=== PATIENT | female | born 1955 | race Caucasian/White ===

== ENCOUNTER 2016-03-05 08:02 | Emergency (ER) | payer BC, OTHER ==
[~2016-03-05] VITALS: Ht 167.6 cm; Wt 90.2 kg
[2016-03-05 08:12] VITALS: TEMP 36.6; Ht 167.6 cm; Wt 90.2 kg
--- NOTE | 2016-03-05 08:41 | DIAGNOSTIC IMAGING REPORT ---
RIGHT HAND MIN 3 VIEWS ROUTINE CLINICAL HISTORY: Right hand pain following fall. COMPARISON: None FINDINGS: There is a comminuted, displaced distal right radial fracture with dorsal tilt of the distal component consistent with a Colles' type fracture. There is a minimally displaced fracture of the base of the ulnar styloid. No additional fractures are identified on this exam. IMPRESSION: 1. Comminuted, displaced distal right radial fracture consistent with a Colles' fracture. 2. Minimally displaced ulnar styloid fracture. Electronically signed by: Vahe Hernandez M.D. 03/05/2016 8:40 AM
[2016-03-05] MEDS ORDERED: SIMV20TA2 PO (08:54)
[2016-03-05] MEDS ORDERED: LEVO125T72 PO (08:54)
--- NOTE | 2016-03-05 09:14 | EMERGENCY ROOM VISIT NOTE ---
ED Visit Note First contact with patient: 08:11 CHIEF COMPLAINT: Right wrist injury HISTORY OF PRESENT ILLNESS: This 60-year-old female patient fell onto the outstretched right hand and pain developed right away in the wrist .There is no numbness of the hand or weakness of the fingers. The pain is constant and moderate in severity. There was no fainting, chest pain, or dizziness before the fall. She is right-hand dominant. The patient denies any prior injury to her right wrist. The patient has not seen any orthopedics in the past. REVIEW OF SYSTEMS: 6 system review was performed and was negative unless stated otherwise in history of present illness. PMH: The patient is healthy; foot surgery SOCIAL HISTORY: Patient lives with her . The patient denies any tobacco or alcohol use PHYSICAL EXAM: Vital Signs: Were reviewed Reviewed Nurse's notes. GEN.: 60-year -old female appears in no acute distress. MENTAL Status: Alert and oriented 3. RIGHT WRIST: There is swelling and tenderness of the distal forearm and wrist. There is no obvious deformity of the distal forearm. The skin is intact. Flexion and extension of the fingers is intact. The fingers are warm and well perfused. The patient has increased pain with ulnar and radial deviation. EMERGENCY DEPARTMENT COURSE: The patient was evaluated. The patient was offered additional pain medication but declined. X-ray of the right wrist was ordered and interpreted by myself and the radiologist. DIAGNOSTICS:RIGHT HAND MIN 3 VIEWS ROUTINE CLINICAL HISTORY: Right hand pain following fall. COMPARISON: None FINDINGS: There is a comminuted, displaced distal right radial fracture with dorsal tilt of the distal component consistent with a Colles' type fracture. There is a minimally displaced fracture of the base of the ulnar styloid. No additional fractures are identified on this exam. IMPRESSION: 1. Comminuted, displaced distal right radial fracture consistent with a Colles' fracture. 2. Minimally displaced ulnar styloid fracture. Electronically signed by: Vahe Hernandez M.D. 03/05/2016 8:40 AM The patient was informed of the findings. The patient was placed in a volar splint. Post-splinting the patient was neurovascularly intact. The patient was discharged home in stable condition. DIAGNOSIS: Fractured distal rt radius and ulna DISCHARGE INSTRUCTIONS AND TREATMENT: Ibuprofen 600 mg every 6 hours with food for pain. Take [place] as needed for more severe pain. Do not drive while taking the [place]. Ice and elevation as much as possible over the next 24 hours. Keep arm in splint until evaluated by orthopedics. Call Dr. Osullivan today for follow-up appointment. Current/Historical Medications Scheduled Levothyroxine Sodium (Synthroid), 125 MCG PO DAILY Simvastatin (Zocor), 1 TAB PO DAILY Allergies Coded Allergies: Sulfa Drugs (Verified Allergy, Unknown, 03/05/16) Vital Signs Date Time Temp Pulse Resp B/P Pulse Ox O2 Delivery O2 Flow Rate FiO2 03/05/16 08:12 36.6 85 18 128/82 95 Room Air Departure Information Referrals Isatu Pacheco DO (PCP) Patient Instructions A Signature Page, My [facility]
[2016-03-05] MEDS ORDERED: HYDR-5688 PO (09:16)
[2016-03-05 09:17] VITALS: BP 130/84; PULSE 79; O2SAT 95
[2016-12-07] MEDS ORDERED: VALA500T60 PO (15:50)
[2016-12-07] MEDS ORDERED: LEVO112T2 PO (15:50)
[2016-12-07] MEDS ORDERED: SIMV20TA5 PO (15:50)
[2016-12-28] MEDS ORDERED: MULT-1027 PO (07:54)
== END 2016-03-05 09:28 | disposition home or self-care (01) ==
LOC: C.EDB 08:04
DX: S52.501A Unspecified fracture of the lower end of right radius, initial encounter for closed fracture (principal); W19.XXXA Unspecified fall, initial encounter; Z79.899 Other long term (current) drug therapy

== ENCOUNTER → 2016-03-07 | Outpatient (CLI) | payer BC ==
[~2016-03-07] MED LIST: HYDR-5688 PO; LEVO112T2 PO; LEVO125T72 PO; MULT-1027 PO; SIMV20TA2 PO; SIMV20TA5 PO; VALA500T60 PO
== END | disposition home or self-care (01) ==
LOC: C.CPL 11:27
PROVIDERS: ATTEND Orthopaedic Surgery Sports Medicine
DX: Z01.810 Encounter for preprocedural cardiovascular examination (principal)

== ENCOUNTER → 2016-07-13 | Outpatient (CLI) | payer BC ==
[2016-07-13 10:15] LABS: ALT/SGPT 35 U/L (12-78); AST/SGOT 19 U/L (15-37); BLOOD UREA NITROGEN 13 mg/dl (7-18); CALCIUM 8.9 mg/dl (8.5-10.1); CARBON DIOXIDE 27 mmol/L (21-32); CHLORIDE 109 mmol/L (98-107); CREATININE 0.66 mg/dl (0.60-1.20); GLUCOSE 91 mg/dl (70-99); POTASSIUM 4.2 mmol/L (3.5-5.1); SODIUM 142 mmol/L (136-145)
[2016-07-13 10:26] LABS: ALB/GLOB RATIO 1.2 (0.9-2); ALKALINE PHOSPHATASE 91 U/L (45-117); CHOLESTEROL 173 mg/dl (0-200); CHOLESTEROL/HDL RATIO 3.8; HDL CHOLESTEROL 46 mg/dl; LDL CHOLESTEROL CALCULATED 101 mg/dl; THYROID STIMULATING HORMONE 0.207 uIu/ml (0.300-4.500); TRIGLYCERIDES 128 mg/dl (0-150); VERY LOW DENSITY LIPOPROT CALC 26 mg/dl
[2016-07-13 10:54] LABS: ESTIMATED AVERAGE GLUCOSE 117 mg/dl; HA1C FLAG Normal (Normal)
== END | disposition home or self-care (01) ==
LOC: C.LAB1850 08:45
PROVIDERS: ATTEND Family Medicine
DX: Z11.59 Encounter for screening for other viral diseases (principal); E03.9 Hypothyroidism, unspecified; E78.00 Pure hypercholesterolemia, unspecified; G60.0 Hereditary motor and sensory neuropathy; M85.80 Other specified disorders of bone density and structure, unspecified site

== ENCOUNTER → 2016-08-24 | Outpatient (CLI) | payer BC ==
--- NOTE | 2016-08-24 16:01 | MAMMOGRAPHY REPORT ---
BILATERAL DIGITAL SCREENING MAMMOGRAM TOMOSYNTHESIS WITH CAD: 08/24/2016 CLINICAL HISTORY: Routine screening. Patient has no complaints. TECHNIQUE: Breast tomosynthesis in addition to standard 2D mammography was performed. Current study was also evaluated with a Computer Aided Detection (CAD) system. COMPARISON: Comparison is made to exams dated: 02/28/2016 ultrasound, 02/28/2016 mammogram, 6 mammogram, 08/19/2015 mammogram, 04/27/2013 mammogram, and 04/25/2012 mammogram - [facility]. BREAST COMPOSITION: There are scattered areas of fibroglandular density in both breasts. FINDINGS: No suspicious masses, calcifications, or areas of architectural distortion are noted in ei ther breast. There has been no significant interval change compared to prior exams. A circular marke r montoya an 8 mm mass in the right upper outer quadrant which was previously documented to be an epide rmal inclusion cyst on ultrasound. A benign intramammary lymph node in the left upper outer quadrant is stable. Bilateral benign calcifications are not significantly changed. IMPRESSION: ACR BI-RADS CATEGORY 2: BENIGN There is no mammographic evidence of malignancy. A 1 year screening mammogram is recommended. The pa tient will receive written notification of the results. Approximately 10% of breast cancers are not detected with mammography. A negative mammographic report should not delay biopsy if a clinically suggestive mass is present. Nina Nieves M.D. /:08/24/2016 15:48:51 Cloud Architect: Lesly LEWIS(Lula)(Marli), [facility] letter sent: Normal 1/2 BI-RADS Code: ACR BI-RADS Category 2: Benign
== END | disposition home or self-care (01) ==
LOC: C.MAMM 14:54
PROVIDERS: ATTEND Family Medicine
DX: Z12.31 Encounter for screening mammogram for malignant neoplasm of breast (principal)

== ENCOUNTER → 2016-09-20 | Outpatient (CLI) | payer BC ==
[~2016-09-20] MED LIST changes: -HYDR-5688 PO; -MULT-1027 PO
== END | disposition home or self-care (01) ==
LOC: C.LAB1850 15:51
PROVIDERS: ATTEND Nurse Practitioner Family
DX: E03.9 Hypothyroidism, unspecified (principal)

== ENCOUNTER → 2016-11-13 | Outpatient (CLI) | payer BC | END | disposition home or self-care (01) | LOC: C.PAPS 17:51 | PROVIDERS: ATTEND Obstetrics & Gynecology | DX: N95.0 Postmenopausal bleeding (principal) ==

== ENCOUNTER → 2017-01-30 | Outpatient (CLI) | payer BC ==
[~2017-01-30] MED LIST changes: -LEVO125T72 PO; +MULT-1027 PO; -SIMV20TA2 PO
[2017-01-30 10:08] LABS: ALB/GLOB RATIO 1.1 (0.9-2); ALKALINE PHOSPHATASE 85 U/L (45-117); ALT/SGPT 35 U/L (12-78); AST/SGOT 19 U/L (15-37); BLOOD UREA NITROGEN 14 mg/dl (7-18); BUN/CREATININE RATIO 19.1 (10-20); CALCIUM 8.9 mg/dl (8.5-10.1); CARBON DIOXIDE 26 mmol/L (21-32); CHLORIDE 109 mmol/L (98-107); CHOLESTEROL 179 mg/dl (0-200); CHOLESTEROL/HDL RATIO 3.8; CREATININE 0.74 mg/dl (0.60-1.20); GLUCOSE 100 mg/dl (70-99); HDL CHOLESTEROL 47 mg/dl; LDL CHOLESTEROL CALCULATED 102 mg/dl; POTASSIUM 4.1 mmol/L (3.5-5.1); SODIUM 141 mmol/L (136-145); TRIGLYCERIDES 151 mg/dl (0-150); VERY LOW DENSITY LIPOPROT CALC 30 mg/dl
[2017-01-30 10:14] LABS: THYROID STIMULATING HORMONE 0.467 uIu/ml (0.300-4.500)
== END | disposition home or self-care (01) ==
LOC: C.LAB1850 08:49
PROVIDERS: ATTEND Nurse Practitioner Family
DX: E78.00 Pure hypercholesterolemia, unspecified (principal); E03.9 Hypothyroidism, unspecified; M85.80 Other specified disorders of bone density and structure, unspecified site; E55.9 Vitamin D deficiency, unspecified

== ENCOUNTER → 2017-03-14 | Outpatient (CLI) | payer BC | END | disposition home or self-care (01) | LOC: C.MAMM 09:12 | PROVIDERS: ATTEND Nurse Practitioner Family | DX: M85.89 Other specified disorders of bone density and structure, multiple sites (principal); E55.9 Vitamin D deficiency, unspecified ==

== ENCOUNTER → 2017-07-24 | Outpatient (CLI) | payer BC ==
[2017-07-24 10:17] LABS: ALBUMIN 4.1 gm/dl (3.4-5.0); ALKALINE PHOSPHATASE 85 U/L (45-117); ALT/SGPT 38 U/L (12-78); AST/SGOT 31 U/L (15-37); BLOOD UREA NITROGEN 13 mg/dl (7-18); CALCIUM 8.9 mg/dl (8.5-10.1); CARBON DIOXIDE 26 mmol/L (21-32); CHOLESTEROL 202 mg/dl (0-200); CREATININE 0.74 mg/dl (0.60-1.20); GLUCOSE 91 mg/dl (70-99); LDL CHOLESTEROL CALCULATED 123 mg/dl; POTASSIUM 4.2 mmol/L (3.5-5.1); SODIUM 140 mmol/L (136-145); TOTAL PROTEIN 7.5 gm/dl (6.4-8.2)
== END | disposition home or self-care (01) ==
LOC: C.LAB1850 08:48
PROVIDERS: ATTEND Nurse Practitioner Family
DX: E03.9 Hypothyroidism, unspecified (principal); E78.00 Pure hypercholesterolemia, unspecified; M85.80 Other specified disorders of bone density and structure, unspecified site; E55.9 Vitamin D deficiency, unspecified